=== PATIENT | male | born 1960 | race Caucasian/White ===

== ENCOUNTER 2021-10-22 04:35 | Emergency (ER) | payer BC ==
[2021-10-22] MEDS ORDERED: Ketorolac Tromethamine 30 MG/ML VIAL ONE (05:06)
[2021-10-22 05:10] LABS: #Basophils 0.1 10x3/uL (0.0-0.2); #Eosinphils 0.4 10x3/uL (0.0-0.5); #Monocytes 0.6 10x3/uL (0.0-1.1); %Basophils 0.8 % (0.0-2.0); %Eosinophils 4.5 % (0.0-6.0); %Monocytes 6.9 % (0.0-10.0); %Neutrophils 50.4 % (40.0-75.0); Hemoglobin 15.6 g/dL (13.5-17.5); Mean Corpuscular HGB CONC 33.8 g/dL (32.0-36.0); Mean Corpuscular Hemoglobin 31.3 pg (27.0-33.0); Mean Corpuscular Volume 92.8 fl (81.2-95.1); Mean Platelet Volume 8.4 fl (7.4-10.4); Platelet Count 334 10x3/uL (150-450); RBC Distribution Width 12.1 % (11.5-14.5); Red Blood Cell (RBC) Count 4.98 10x6/uL (4.32-5.72)
[2021-10-22 05:29] LABS: ALT (SGPT) 15 U/L (8-55); AST (SGOT) 16 U/L (5-34); Albumin 3.8 g/dL (3.4-4.8); Alkaline Phosphatase 88 U/L (40-110); Anion Gap 15 mmol/L (10-20); BUN (Urea Nitrogen) 20 mg/dL (8.4-25.7); Bilirubin, Total 0.3 mg/dL (0.2-1.2); Calc. Creatinine Clearance 0 mL/min (70-130); Carbon Dioxide 25 mmol/L (23-31); Chloride 107 mmol/L (98-107); Globulin 2.5 g/dL (2.4-3.5); Glucose 94 mg/dL (80-115); Potassium 4.4 mmol/L (3.5-5.1); Protein, Total 6.3 g/dL (5.8-8.1); Sodium 143 mmol/L (136-145)
== END 2021-10-22 06:39 | disposition home or self-care (01) ==
LOC: CSHERS 04:35
DX: R09.1 Pleurisy (principal); Z71.6 Tobacco abuse counseling; Z87.891 Personal history of nicotine dependence; J44.9 Chronic obstructive pulmonary disease, unspecified
CPT/HCPCS: 71045; 71275; 80053; 84484; 85025; 93005; 96374; J1885

== ENCOUNTER 2022-01-10 17:03 | Observation (INO) | payer BC ==
[2022-01-10 17:41] LABS: #Basophils 0.1 10x3/uL (0.0-0.2); #Eosinphils 0.3 10x3/uL (0.0-0.5); #Monocytes 0.4 10x3/uL (0.0-1.1); #Neutrophils 3.7 10x3/uL (1.5-8.4); %Basophils 0.8 % (0.0-2.0); %Eosinophils 3.8 % (0.0-6.0); %Lymphocytes 37.7 % (18.0-47.0); %Monocytes 5.7 % (0.0-10.0); %Neutrophils 51.6 % (40.0-75.0); Mean Corpuscular HGB CONC 34.4 g/dL (32.0-36.0); Mean Platelet Volume 8.6 fl (7.4-10.4); Platelet Count 304 10x3/uL (150-450); RBC Distribution Width 12.1 % (11.5-14.5); White Blood Cell (WBC) Count 7.2 10x3/uL (3.5-10.5)
[2022-01-10 18:01] LABS: ALT (SGPT) 7 U/L (8-55); AST (SGOT) 14 U/L (5-34); Albumin 4.1 g/dL (3.4-4.8); Alkaline Phosphatase 76 U/L (40-110); Anion Gap 14 mmol/L (10-20); BUN (Urea Nitrogen) 25 mg/dL (8.4-25.7); Bilirubin, Total 0.4 mg/dL (0.2-1.2); Calc. Creatinine Clearance 0 mL/min (70-130); Calcium 9.4 mg/dL (7.8-10.44); Carbon Dioxide 24 mmol/L (23-31); Chloride 103 mmol/L (98-107); Globulin 2.7 g/dL (2.4-3.5); Glucose 166 mg/dL (80-115); Lipase 55 U/L (8-78); Potassium 4.3 mmol/L (3.5-5.1); Protein, Total 6.8 g/dL (5.8-8.1); Sodium 137 mmol/L (136-145)
[2022-01-10] MEDS ORDERED: Ketorolac Tromethamine 30 MG/ML VIAL ONE (19:39)
[2022-01-10] MEDS ORDERED: Guaifenesin DM 100-10/5 ML UDCUP PO PRN (22:02)
[2022-01-10] MEDS ORDERED: Ondansetron PF 4 MG/2 ML Vial IVP PRN (22:02)
[2022-01-10] MEDS ORDERED: Calcium Carbonate 500 MG ChewTAB PO PRN (22:02)
[2022-01-10] MEDS ORDERED: Acetaminophen 325 MG TAB PO PRN (22:02)
[2022-01-10] MEDS ORDERED: HYDROcodone/Acetaminophen 5/325 mg Tablet PO PRN (22:02)
[2022-01-10] MEDS ORDERED: Senokot S 8.6-50 MG TAB PO PRN (22:02)
[2022-01-10 22:48] VITALS: BMI 21.1
[2022-01-10] MEDS ORDERED: Sodium Chloride 0.9% 500 ML IV SCH (23:00)
[2022-01-10] MEDS ORDERED: Dexamethasone 4 mg/ml Vial SLOW IVP SCH (23:00)
[2022-01-11 03:47] LABS: SARS-CoV-2 NAA Rapid Test Not Detected (NotDetected)
[2022-01-11 06:18] LABS: Anion Gap 15 mmol/L (10-20); BUN (Urea Nitrogen) 29 mg/dL (8.4-25.7); Calc. Creatinine Clearance 59 mL/min (70-130); Calcium 8.8 mg/dL (7.8-10.44); Carbon Dioxide 24 mmol/L (23-31); Chloride 105 mmol/L (98-107); Glucose 115 mg/dL (80-115); Potassium 4.5 mmol/L (3.5-5.1); Sodium 139 mmol/L (136-145)
[2022-01-11] MEDS ORDERED: Mometasone/Formoterol 60 PUFF AER INH SCH (06:30)
[2022-01-11] MEDS: Dexamethasone 1 MG TAB PO SCH ×2 (08:50→17:00)
[2022-01-11] MEDS ORDERED: Aspirin 325 MG TAB PO SCH (09:00)
[2022-01-11] MEDS ORDERED: Tamsulosin HCl 0.4 MG CAP PO SCH (09:00)
[2022-01-11] MEDS ORDERED: Famotidine 20 MG TAB PO SCH (09:00)
[2022-01-11] MEDS ORDERED: Enoxaparin Sodium 40 MG/0.4 ML SYRINGE SC SCH (09:00)
[2022-01-11 17:21] VITALS: BP 115/61; TEMP 98.2
== END 2022-01-11 17:29 | disposition home or self-care (01) ==
LOC: CSHERS 17:03 → CSHTELE 22:46
PROVIDERS: ADMIT Hospitalist; ATTEND Hospitalist
DX: R06.02 Shortness of breath (principal); R42 Dizziness and giddiness; R53.1 Weakness; N18.2 Chronic kidney disease, stage 2 (mild); I25.10 Atherosclerotic heart disease of native coronary artery without angina pectoris; J43.9 Emphysema, unspecified; F17.210 Nicotine dependence, cigarettes, uncomplicated; E27.40 Unspecified adrenocortical insufficiency; I49.3 Ventricular premature depolarization; I45.10 Unspecified right bundle-branch block; I65.23 Occlusion and stenosis of bilateral carotid arteries; M50.11 Cervical disc disorder with radiculopathy, high cervical region; M47.22 Other spondylosis with radiculopathy, cervical region; Z86.16 Personal history of COVID-19; Z79.82 Long term (current) use of aspirin; Z79.899 Other long term (current) drug therapy; Z95.5 Presence of coronary angioplasty implant and graft; Z20.822 Contact with and (suspected) exposure to COVID-19
CPT/HCPCS: 36415; 70553; 71045; 72156; 80048; 80053; 82533; 83690; 83880; 84443; 84484; 85025; 93005; 93306; 93880; 94664; 94760; 96372; 96374; 96375; G0378; J1100; J1650; J1885; J7030; J8540; U0002

== ENCOUNTER 2022-02-24 10:18 | Outpatient (CLI) | payer BC | END 2022-02-24 10:19 | disposition home or self-care (01) | LOC: CSHRAD 10:18 | PROVIDERS: ATTEND Internal Medicine Rheumatology | DX: M25.561 Pain in right knee (principal) ==

== ENCOUNTER 2022-04-24 18:45 | Emergency (ER) | payer BC ==
[2022-04-24 19:47] LABS: #Basophils 0.1 10x3/uL (0.0-0.2); #Eosinphils 0.2 10x3/uL (0.0-0.5); #Monocytes 0.5 10x3/uL (0.0-1.1); #Neutrophils 5.7 10x3/uL (1.5-8.4); %Basophils 0.7 % (0.0-2.0); %Eosinophils 1.8 % (0.0-6.0); %Lymphocytes 27.8 % (18.0-47.0); %Neutrophils 63.5 % (40.0-75.0); Hemoglobin 16.5 g/dL (13.5-17.5); Mean Corpuscular HGB CONC 34.7 g/dL (32.0-36.0); Mean Corpuscular Hemoglobin 31.7 pg (27.0-33.0); Mean Corpuscular Volume 91.4 fl (81.2-95.1); Mean Platelet Volume 8.9 fl (7.4-10.4); Platelet Count 290 10x3/uL (150-450); RBC Distribution Width 12.8 % (11.5-14.5); Red Blood Cell (RBC) Count 5.21 10x6/uL (4.32-5.72)
[2022-04-24] MEDS ORDERED: Hydrocortisone Sod Succ/PF 100 mg/2 ml Vial ONE (19:49)
[2022-04-24 20:07] LABS: ALT (SGPT) 11 U/L (8-55); AST (SGOT) 17 U/L (5-34); Albumin 4.4 g/dL (3.4-4.8); Alkaline Phosphatase 74 U/L (40-110); Anion Gap 15 mmol/L (10-20); BUN (Urea Nitrogen) 35 mg/dL (8.4-25.7); Bilirubin, Total 0.7 mg/dL (0.2-1.2); Calc. Creatinine Clearance 0 mL/min (70-130); Calcium 9.9 mg/dL (7.8-10.44); Carbon Dioxide 27 mmol/L (23-31); Chloride 103 mmol/L (98-107); Estimated GFR 37; Globulin 2.4 g/dL (2.4-3.5); Glucose 107 mg/dL (80-115); Magnesium 2.1 mg/dL (1.6-2.6); Potassium 4.1 mmol/L (3.5-5.1); Protein, Total 6.8 g/dL (5.8-8.1); Sodium 141 mmol/L (136-145)
[2022-04-24 20:59] LABS: CKMB 2.3 ng/mL (0-6.6)
[2022-04-24] MEDS ORDERED: Aspirin 325 MG TAB ONE (21:05)
[2022-04-24 22:50] LABS: SARS-CoV-2 NAA Rapid Test Not Detected (NotDetected)
== END 2022-04-24 22:14 | disposition short-term general hospital (02) ==
LOC: CSHERS 18:45
DX: I21.4 Non-ST elevation (NSTEMI) myocardial infarction (principal); N17.9 Acute kidney failure, unspecified; I10 Essential (primary) hypertension; E27.49 Other adrenocortical insufficiency; Z20.822 Contact with and (suspected) exposure to COVID-19
CPT/HCPCS: 71045; 80053; 82553; 83735; 83880; 84484; 85025; 85379; 93005; 96374; J1720; U0002

== ENCOUNTER 2022-07-09 13:33 | Observation (INO) | payer BC ==
[~2022-07-09 13:33] MED LIST: Iopamidol 370 76% 100 ML VIAL ONE
[2022-07-09] MEDS ORDERED: diphenhydrAMINE 50 MG/ML VIAL ONE (14:22)
[2022-07-09] MEDS ORDERED: Prochlorperazine 10 MG/2 ML VIAL ONE (14:23)
[2022-07-09 14:29] LABS: #Basophils 0.1 10x3/uL (0.0-0.2); #Eosinphils 0.2 10x3/uL (0.0-0.5); #Monocytes 0.5 10x3/uL (0.0-1.1); #Neutrophils 3.5 10x3/uL (1.5-8.4); %Basophils 0.9 % (0.0-2.0); %Eosinophils 3.2 % (0.0-6.0); %Lymphocytes 33.9 % (18.0-47.0); %Monocytes 7.9 % (0.0-10.0); %Neutrophils 53.8 % (40.0-75.0); Hemoglobin 15.8 g/dL (13.5-17.5); Mean Corpuscular HGB CONC 35.2 g/dL (32.0-36.0); Mean Corpuscular Hemoglobin 32.2 pg (27.0-33.0); Mean Corpuscular Volume 91.4 fl (81.2-95.1); Mean Platelet Volume 8.7 fl (7.4-10.4); Platelet Count 256 10x3/uL (150-450); RBC Distribution Width 11.9 % (11.5-14.5); Red Blood Cell (RBC) Count 4.91 10x6/uL (4.32-5.72); White Blood Cell (WBC) Count 6.5 10x3/uL (3.5-10.5)
[2022-07-09 14:50] LABS: PTT 29.2 sec (22.0-33.0); Prothrombin Time 10.4 sec (9.5-12.1)
[2022-07-09 14:54] LABS: ALT (SGPT) 11 U/L (8-55); AST (SGOT) 14 U/L (5-34); Albumin 3.8 g/dL (3.4-4.8); Alkaline Phosphatase 90 U/L (40-110); Anion Gap 14 mmol/L (10-20); BUN (Urea Nitrogen) 30 mg/dL (8.4-25.7); Bilirubin, Total 0.4 mg/dL (0.2-1.2); Calc. Creatinine Clearance 0 mL/min (70-130); Calcium 9.3 mg/dL (7.8-10.44); Carbon Dioxide 26 mmol/L (23-31); Chloride 106 mmol/L (98-107); Estimated GFR 69; Globulin 2.2 g/dL (2.4-3.5); Glucose 89 mg/dL (80-115); Potassium 4.5 mmol/L (3.5-5.1); Sodium 141 mmol/L (136-145)
[2022-07-09 15:17] LABS: CKMB 1.2 ng/mL (0-6.6)
[2022-07-09] MEDS ORDERED: Aspirin Chewable 81 MG TAB ONE (16:40)
[2022-07-09] MEDS ORDERED: Acetaminophen 325 MG TAB PO PRN (19:33)
[2022-07-09] MEDS ORDERED: Ondansetron ODT 4 MG TAB PO PRN (19:33)
[2022-07-09] MEDS ORDERED: hydrALAZINE 20 MG/ML VIAL SLOW IVP PRN (19:34)
[2022-07-09] MEDS ORDERED: Nicotine 7 MG PATCH TD PRN (19:52)
[2022-07-09] MEDS ORDERED: Albuterol Sulfate 2.5 mg/3 ml Neb NEB PRN (19:59)
[2022-07-09] MEDS ORDERED: Sodium Chloride 0.9% 1,000 ML IV SCH (20:00)
[2022-07-09 20:59] VITALS: BMI 24.2
[2022-07-09] MEDS ORDERED: Atorvastatin Calcium 40 MG TAB PO SCH (21:00)
[2022-07-09 21:19] LABS: CKMB 1.3 ng/mL (0-6.6)
[2022-07-09 21:26] LABS: SARS-CoV-2 NAA Rapid Test Not Detected (NotDetected)
[2022-07-09] MEDS ORDERED: Hydrocortisone 10 mg Tablet PO SCH (22:30)
[2022-07-10 05:06] LABS: #Basophils 0.1 10x3/uL (0.0-0.2); #Eosinphils 0.3 10x3/uL (0.0-0.5); #Monocytes 0.6 10x3/uL (0.0-1.1); #Neutrophils 3.8 10x3/uL (1.5-8.4); %Basophils 0.7 % (0.0-2.0); %Eosinophils 4.1 % (0.0-6.0); %Lymphocytes 33.4 % (18.0-47.0); %Monocytes 8.6 % (0.0-10.0); %Neutrophils 52.8 % (40.0-75.0); Hemoglobin 15.3 g/dL (13.5-17.5); Mean Corpuscular HGB CONC 34.2 g/dL (32.0-36.0); Mean Corpuscular Volume 93.7 fl (81.2-95.1); Platelet Count 261 10x3/uL (150-450); RBC Distribution Width 11.9 % (11.5-14.5); Red Blood Cell (RBC) Count 4.78 10x6/uL (4.32-5.72); White Blood Cell (WBC) Count 7.1 10x3/uL (3.5-10.5)
[2022-07-10 05:18] LABS: Anion Gap 11 mmol/L (10-20); BUN (Urea Nitrogen) 28 mg/dL (8.4-25.7); Calc. Creatinine Clearance 73 mL/min (70-130); Calcium 8.8 mg/dL (7.8-10.44); Carbon Dioxide 23 mmol/L (23-31); Cardiac Risk 3.7 (Less than 4.5); Chloride 111 mmol/L (98-107); Cholesterol 178 mg/dl (< 200 Desired); Estimated GFR 73; Glucose 98 mg/dL (80-115); HDL Cholesterol 48 mg/dL (>60 Neg Risk); LDL Cholesterol, Calculated 107 mg/dL; Potassium 4.3 mmol/L (3.5-5.1); Sodium 141 mmol/L (136-145); Triglycerides 114 mg/dL (Less than 150)
[2022-07-10] MEDS ORDERED: Enoxaparin Sodium 40 MG/0.4 ML SYRINGE SC SCH (09:00)
[2022-07-10] MEDS ORDERED: Hydrocortisone 10 mg Tablet PO SCH ×2 (09:00→17:00)
[2022-07-10] MEDS ORDERED: Aspirin 81 mg Enteric Coated Tablet PO SCH (09:00)
[2022-07-10 11:56] LABS: Hemoglobin A1c 5.1 % (4.0-6.0)
[2022-07-10 11:59] VITALS: BP 162/68; TEMP 98.2
== END 2022-07-10 14:53 | disposition home or self-care (01) ==
LOC: CSHERS 13:33 → INTOOBSV 18:02 → CSHTELE 18:02
PROVIDERS: ADMIT Family Medicine; ATTEND Family Medicine
DX: G45.9 Transient cerebral ischemic attack, unspecified (principal); R42 Dizziness and giddiness; E27.40 Unspecified adrenocortical insufficiency; I25.10 Atherosclerotic heart disease of native coronary artery without angina pectoris; E86.0 Dehydration; M19.90 Unspecified osteoarthritis, unspecified site; J44.9 Chronic obstructive pulmonary disease, unspecified; I25.2 Old myocardial infarction; I12.9 Hypertensive chronic kidney disease with stage 1 through stage 4 chronic kidney disease, or unspecified chronic kidney disease; N18.9 Chronic kidney disease, unspecified; F17.210 Nicotine dependence, cigarettes, uncomplicated; Z20.822 Contact with and (suspected) exposure to COVID-19; Z95.5 Presence of coronary angioplasty implant and graft; Z79.82 Long term (current) use of aspirin; Z98.890 Other specified postprocedural states; Z79.899 Other long term (current) drug therapy
CPT/HCPCS: 36415; 36416; 70496; 70498; 70551; 80048; 80053; 80061; 82553; 83036; 84443; 84484; 85025; 85610; 85730; 93005; 94760; 96361; 96372; 96374; 96375; G0378; J0780; J1200; J1650; J7050; Q9967; U0002

== ENCOUNTER 2022-09-04 06:13 | Observation (INO) | payer BC ==
[2022-09-04 08:27] LABS: #Basophils 0.1 10x3/uL (0.0-0.2); #Eosinphils 0.5 10x3/uL (0.0-0.5); #Monocytes 0.6 10x3/uL (0.0-1.1); #Neutrophils 3.6 10x3/uL (1.5-8.4); %Basophils 0.8 % (0.0-2.0); %Eosinophils 7.3 % (0.0-6.0); %Lymphocytes 27.9 % (18.0-47.0); %Monocytes 9.5 % (0.0-10.0); %Neutrophils 54.2 % (40.0-75.0); Hemoglobin 15.9 g/dL (13.5-17.5); Mean Corpuscular HGB CONC 34.6 g/dL (32.0-36.0); Mean Corpuscular Hemoglobin 31.9 pg (27.0-33.0); Mean Corpuscular Volume 92.4 fl (81.2-95.1); Mean Platelet Volume 8.9 fl (7.4-10.4); Platelet Count 235 10x3/uL (150-450); RBC Distribution Width 12.6 % (11.5-14.5); Red Blood Cell (RBC) Count 4.98 10x6/uL (4.32-5.72); White Blood Cell (WBC) Count 6.6 10x3/uL (3.5-10.5)
[2022-09-04 08:34] LABS: ALT (SGPT) 13 U/L (8-55); AST (SGOT) 16 U/L (5-34); Albumin 3.9 g/dL (3.4-4.8); Alkaline Phosphatase 95 U/L (40-110); Anion Gap 13 mmol/L (10-20); BUN (Urea Nitrogen) 25 mg/dL (8.4-25.7); Bilirubin, Total 0.7 mg/dL (0.2-1.2); CK (CPK) 128 U/L (30-200); Calc. Creatinine Clearance 0 mL/min (70-130); Calcium 9.1 mg/dL (7.8-10.44); Carbon Dioxide 24 mmol/L (23-31); Chloride 107 mmol/L (98-107); Estimated GFR 64; Globulin 2.3 g/dL (2.4-3.5); Glucose 95 mg/dL (80-115); Lipase 43 U/L (8-78); Magnesium 2.2 mg/dL (1.6-2.6); Potassium 4.5 mmol/L (3.5-5.1); Protein, Total 6.2 g/dL (5.8-8.1); Sodium 139 mmol/L (136-145)
[2022-09-04 08:57] LABS: CKMB 2.3 ng/mL (0-6.6)
[2022-09-04 10:06] LABS: Bilirubin Neg (Negative); Blood, Urine 10 (Negative); Clarity Clear (Clear); Glucose, Urine (Dipstick) Normal (Negative); Ketone, Urine Negative (Negative); Leukocyte Negative (Negative); Nitrite Negative (Negative); Protein, Urine (Dipstick) Negative (Neg-Trace); Specific Gravity, Urine 1.015 (1.005-1.030)
[2022-09-04 10:35] LABS: Bacteria/HPF None Seen HPF (None Seen); RBC/HPF 0-3 HPF (0-3); Squamous Epithelial None Seen HPF (0-3); WBC/HPF None Seen HPF (0-3)
[2022-09-04] MEDS ORDERED: Ondansetron PF 4 MG/2 ML Vial IVP PRN (12:08)
[2022-09-04] MEDS ORDERED: Ondansetron ODT 4 MG TAB PO PRN (12:08)
[2022-09-04] MEDS ORDERED: Acetaminophen 325 MG TAB PO PRN (12:08)
[2022-09-04] MEDS ORDERED: Ventolin HFA Inhaler 60 PUFF INHALER INH PRN (12:12)
[2022-09-04] MEDS ORDERED: Electrolyte Replacement Protocol 1 EACH FS SCH (12:15)
[2022-09-04] MEDS ORDERED: Sodium Chloride 0.9% 1,000 ML IV SCH (12:15)
[2022-09-04 12:59] VITALS: BMI 50.5
[2022-09-04 16:09] LABS: CKMB 1.8 ng/mL (0-6.6)
[2022-09-04] MEDS: Hydrocortisone 10 mg Tablet PO SCH (19:03)
[2022-09-04] MEDS ORDERED: Tamsulosin HCl 0.4 MG CAP PO SCH (22:30)
[2022-09-04] MEDS ORDERED: CeleCOXIB 100 MG CAP PO SCH (22:30)
[2022-09-04] MEDS: Tamsulosin HCl 0.4 MG CAP PO SCH (22:35)
[2022-09-05 04:44] LABS: #Basophils 0.1 10x3/uL (0.0-0.2); #Eosinphils 0.4 10x3/uL (0.0-0.5); #Monocytes 0.5 10x3/uL (0.0-1.1); #Neutrophils 3.1 10x3/uL (1.5-8.4); %Lymphocytes 34.4 % (18.0-47.0); %Monocytes 8.3 % (0.0-10.0); Hemoglobin 14.9 g/dL (13.5-17.5); Mean Corpuscular HGB CONC 34.5 g/dL (32.0-36.0); Mean Corpuscular Hemoglobin 31.5 pg (27.0-33.0); Mean Corpuscular Volume 91.3 fl (81.2-95.1); Platelet Count 221 10x3/uL (150-450); RBC Distribution Width 12.4 % (11.5-14.5); Red Blood Cell (RBC) Count 4.73 10x6/uL (4.32-5.72); White Blood Cell (WBC) Count 6.3 10x3/uL (3.5-10.5)
[2022-09-05 05:05] LABS: Anion Gap 10 mmol/L (10-20); BUN (Urea Nitrogen) 25 mg/dL (8.4-25.7); Calc. Creatinine Clearance 162 mL/min (70-130); Calcium 8.8 mg/dL (7.8-10.44); Carbon Dioxide 24 mmol/L (23-31); Chloride 109 mmol/L (98-107); Estimated GFR 78; Glucose 95 mg/dL (80-115); Potassium 4.5 mmol/L (3.5-5.1); Sodium 138 mmol/L (136-145)
[2022-09-05] MEDS ORDERED: Non-Formulary Medication 1 EACH (Tadalafil [Tadalafil] 5 MG Tablet) PO SCH (09:00)
[2022-09-05] MEDS: Famotidine 20 MG TAB PO SCH ×3 (10:07→23:53)
[2022-09-05] MEDS: Hydrocortisone 10 mg Tablet PO SCH ×2 (10:12→17:37)
[2022-09-05] MEDS: Aspirin 325 MG TAB PO SCH (10:13)
[2022-09-05] MEDS: Atorvastatin Calcium 40 MG TAB PO SCH (10:13)
[2022-09-05] MEDS: Tamsulosin HCl 0.4 MG CAP PO SCH (22:02)
[2022-09-05] MEDS ORDERED: CeleCOXIB 100 MG CAP PO SCH (22:30)
[2022-09-06 08:42] VITALS: TEMP 97.8
[2022-09-06] MEDS: Aspirin 325 MG TAB PO SCH (10:33)
[2022-09-06] MEDS: Atorvastatin Calcium 40 MG TAB PO SCH (10:33)
[2022-09-06] MEDS: Hydrocortisone 10 mg Tablet PO SCH (10:33)
[2022-09-06] MEDS: Famotidine 20 MG TAB PO SCH (10:33)
[2022-09-06 10:42] VITALS: BP 130/71
== END 2022-09-06 10:35 | disposition home or self-care (01) ==
LOC: CSHERS 06:13 → CSHTELE 12:13
PROVIDERS: ADMIT Internal Medicine; ATTEND Family Medicine
DX: R42 Dizziness and giddiness (principal); H93.19 Tinnitus, unspecified ear; R00.1 Bradycardia, unspecified; I25.10 Atherosclerotic heart disease of native coronary artery without angina pectoris; I10 Essential (primary) hypertension; E27.40 Unspecified adrenocortical insufficiency; J44.9 Chronic obstructive pulmonary disease, unspecified; L40.50 Arthropathic psoriasis, unspecified; R31.9 Hematuria, unspecified; I25.2 Old myocardial infarction; Z86.73 Personal history of transient ischemic attack (TIA), and cerebral infarction without residual deficits; Z79.82 Long term (current) use of aspirin; Z79.899 Other long term (current) drug therapy; Z87.891 Personal history of nicotine dependence; Z95.5 Presence of coronary angioplasty implant and graft; Z98.890 Other specified postprocedural states
CPT/HCPCS: 36415; 71045; 80048; 80053; 81003; 81015; 82550; 82553; 83690; 83735; 84443; 84484; 85025; 93005; 94760; 96360; 96361; G0378; J7050

== ENCOUNTER 2023-07-02 18:36 | Emergency (ER) | payer BC ==
[2023-07-02 19:52] LABS: #Basophils 0.1 10x3/uL (0.0-0.2); #Eosinphils 0.4 10x3/uL (0.0-0.5); #Monocytes 0.7 10x3/uL (0.0-1.1); #Neutrophils 3.1 10x3/uL (1.5-8.4); %Basophils 0.8 % (0.0-2.0); %Eosinophils 5.8 % (0.0-6.0); %Lymphocytes 30.2 % (18.0-47.0); %Monocytes 11.2 % (0.0-10.0); %Neutrophils 51.8 % (40.0-75.0); Hematocrit 47.7 % (38.8-50.0); Hemoglobin 15.9 g/dL (13.5-17.5); Mean Corpuscular HGB CONC 33.3 g/dL (32.0-36.0); Mean Corpuscular Hemoglobin 31.6 pg (27.0-33.0); Mean Corpuscular Volume 94.8 fl (81.2-95.1); Mean Platelet Volume 8.8 fl (7.4-10.4); Platelet Count 251 10x3/uL (150-450); RBC Distribution Width 11.8 % (11.5-14.5); Red Blood Cell (RBC) Count 5.03 10x6/uL (4.32-5.72)
[2023-07-02 20:12] LABS: ALT (SGPT) 10 U/L (8-55); AST (SGOT) 17 U/L (5-34); Albumin 3.7 g/dL (3.4-4.8); Alkaline Phosphatase 96 U/L (40-110); Anion Gap 14 mmol/L (10-20); BUN (Urea Nitrogen) 16 mg/dL (8.4-25.7); Bilirubin, Total 0.3 mg/dL (0.2-1.2); Calc. Creatinine Clearance 0 mL/min (70-130); Calcium 8.8 mg/dL (7.8-10.44); Carbon Dioxide 26 mmol/L (23-31); Chloride 105 mmol/L (98-107); Estimated GFR 70; Globulin 2.7 g/dL (2.4-3.5); Glucose 90 mg/dL (80-115); Potassium 4.3 mmol/L (3.5-5.1); Protein, Total 6.4 g/dL (5.8-8.1); Sodium 141 mmol/L (136-145)
[2023-07-02 20:18] LABS: Troponin I 0.019 ng/mL (< 0.028)
[2023-07-02 20:23] LABS: SARS-CoV-2 NAA Rapid Test Not Detected (NotDetected)
[2023-07-02] MEDS ORDERED: Ipratropium/Albuterol 3 ML NEB ONE (20:33)
[2023-07-02] MEDS ORDERED: methylPREDNISolone Sod Succ/PF 125 MG/2 ML VIAL ONE (21:15)
== END 2023-07-02 21:35 | disposition home or self-care (01) ==
LOC: CSHERS 18:36
DX: J44.1 Chronic obstructive pulmonary disease with (acute) exacerbation (principal); I25.10 Atherosclerotic heart disease of native coronary artery without angina pectoris; F17.210 Nicotine dependence, cigarettes, uncomplicated; Z20.822 Contact with and (suspected) exposure to COVID-19
CPT/HCPCS: 71045; 80053; 84484; 85025; 93005; 94640; 94760; 96372; J2930; J7620

== ENCOUNTER 2023-08-01 17:20 | Emergency (ER) | payer BC ==
[2023-08-01] MEDS ORDERED: Dexamethasone 10 MG/ML VIAL ONE (18:07)
[2023-08-01] MEDS ORDERED: Albuterol 2.5 MG (0.5 mL) NEB ONE (18:08)
[2023-08-01] MEDS ORDERED: Ipratropium/Albuterol 3 ML NEB ONE (18:08)
[2023-08-01 18:39] LABS: #Basophils 0.1 10x3/uL (0.0-0.2); #Eosinphils 0.1 10x3/uL (0.0-0.5); #Monocytes 0.8 10x3/uL (0.0-1.1); #Neutrophils 4.2 10x3/uL (1.5-8.4); %Eosinophils 1.3 % (0.0-6.0); %Lymphocytes 18.2 % (18.0-47.0); %Monocytes 12.5 % (0.0-10.0); %Neutrophils 66.5 % (40.0-75.0); Hematocrit 49.4 % (38.8-50.0); Hemoglobin 16.4 g/dL (13.5-17.5); Mean Corpuscular HGB CONC 33.2 g/dL (32.0-36.0); Mean Corpuscular Hemoglobin 31.1 pg (27.0-33.0); Mean Corpuscular Volume 93.7 fl (81.2-95.1); Mean Platelet Volume 8.7 fl (7.4-10.4); Platelet Count 278 10x3/uL (150-450); RBC Distribution Width 11.9 % (11.5-14.5); Red Blood Cell (RBC) Count 5.27 10x6/uL (4.32-5.72); White Blood Cell (WBC) Count 6.3 10x3/uL (3.5-10.5)
[2023-08-01 18:53] LABS: ALT (SGPT) 15 U/L (8-55); AST (SGOT) 20 U/L (5-34); Albumin 4.1 g/dL (3.4-4.8); Alkaline Phosphatase 117 U/L (40-110); Anion Gap 16 mmol/L (10-20); BUN (Urea Nitrogen) 19 mg/dL (8.4-25.7); Bilirubin, Total 0.3 mg/dL (0.2-1.2); Calc. Creatinine Clearance 0 mL/min (70-130); Calcium 9.4 mg/dL (7.8-10.44); Carbon Dioxide 27 mmol/L (23-31); Chloride 101 mmol/L (98-107); Estimated GFR 62; Globulin 3.1 g/dL (2.4-3.5); Glucose 79 mg/dL (80-115); Potassium 4.9 mmol/L (3.5-5.1); Protein, Total 7.2 g/dL (5.8-8.1); Sodium 139 mmol/L (136-145)
[2023-08-01 18:59] LABS: Bilirubin Neg (Negative); Blood, Urine 50 (Negative); Clarity Clear (Clear); Glucose, Urine (Dipstick) Normal (Negative); Ketone, Urine Negative (Negative); Leukocyte Negative (Negative); Nitrite Negative (Negative); Protein, Urine (Dipstick) 15 mg/dl (Neg-Trace)
[2023-08-01 19:16] LABS: Bacteria/HPF Rare-Few HPF (None Seen); CAUTI Indications for Culture Pelvic or flank pain; Squamous Epithelial None Seen HPF (0-3); Urine Culture Reflex No No; WBC/HPF 0-3 HPF (0-3)
== END 2023-08-01 19:29 | disposition home or self-care (01) ==
LOC: CSHERS 17:20
DX: J44.1 Chronic obstructive pulmonary disease with (acute) exacerbation (principal); I25.10 Atherosclerotic heart disease of native coronary artery without angina pectoris; F17.210 Nicotine dependence, cigarettes, uncomplicated
CPT/HCPCS: 71046; 80053; 81001; 85025; J1100; J7611; J7620

== ENCOUNTER 2024-09-13 11:35 | Emergency (ER) | payer BC ==
[2024-09-13 12:23] LABS: #Basophils Less than 0.03 10x3/uL (0.0-0.2); #Eosinophils 0.05 10x3/uL (0.0-0.5); #Neutrophils 1.56 10x3/uL (1.5-8.4); %Basophils 0.3 % (0.0-2.0); %Eosinophils 1.6 % (0.0-6.0); %Lymphocytes 37.5 % (18.0-47.0); %Monocytes 9.7 % (0.0-10.0); %Neutrophils 50.6 % (40.0-75.0); Hematocrit 47.7 % (38.8-50.0); Hemoglobin 15.9 g/dL (13.5-17.5); Mean Corpuscular HGB CONC 33.3 g/dL (32.0-36.0); Mean Corpuscular Hemoglobin 30.7 pg (27.0-33.0); Mean Corpuscular Volume 92.1 fL (81.2-95.1); Mean Platelet Volume 9.3 fL (7.4-10.4); Platelet Count 162 10x3/uL (150-450); RBC Distribution Width 12.2 % (11.5-14.5); Red Blood Cell (RBC) Count 5.18 10x6/uL (4.32-5.72); White Blood Cell (WBC) Count 3.09 10x3/uL (3.5-10.5)
[2024-09-13 12:48] LABS: ALT (SGPT) 17 U/L (Less than 45); AST (SGOT) 30 U/L (11-34); Albumin 3.5 g/dL (3.1-4.5); Alkaline Phosphatase 99 U/L (40-110); Anion Gap 13 mmol/L (10-20); BUN (Urea Nitrogen) 26 mg/dL (8.4-25.7); Bilirubin, Total 0.4 mg/dL (0.3-1.2); Calc. Creatinine Clearance 0 mL/min (70-130); Calcium 8.4 mg/dL (7.8-10.44); Carbon Dioxide 24 mmol/L (23-31); Chloride 105 mmol/L (98-107); Estimated GFR 53; Glucose 102 mg/dL (80-115); Potassium 4.7 mmol/L (3.5-5.1); Protein, Total 6.5 g/dL (5.8-8.1); Sodium 137 mmol/L (136-145)
[2024-09-13] MEDS ORDERED: Hydrocortisone Sod Succ/PF 100 mg/2 ml Vial IVP SCH (13:00)
[2024-09-13 13:14] LABS: Troponin I 0.019 ng/mL (< 0.028)
== END 2024-09-13 15:18 | disposition home or self-care (01) ==
LOC: CSHERS 11:35
DX: J11.1 Influenza due to unidentified influenza virus with other respiratory manifestations (principal); E27.40 Unspecified adrenocortical insufficiency; I25.10 Atherosclerotic heart disease of native coronary artery without angina pectoris; I25.2 Old myocardial infarction; J44.9 Chronic obstructive pulmonary disease, unspecified; F17.210 Nicotine dependence, cigarettes, uncomplicated
CPT/HCPCS: 71045; 80053; 83735; 84145; 84484; 85025; 93005; 96361; 96374; J1720